=== PATIENT | female | born 1975 | race Two or more races ===

== ENCOUNTER 2017-05-10 11:24 | Inpatient (IN) ==
[2017-05-10 12:45] LABS: Basophils % 0.6 % (0.0-0.8); Eosinophils # 0.3 10*3/uL (0.0-0.87); Hematocrit 37.9 VOL% (35.7-47.0); Hemoglobin 12.6 GM/DL (12.0-16.0); Immature Granulocytes % 0.3 %; Immature Granulocytes Absolute 0.02 #; Lymphocytes # 2.4 10*3/uL (1.4-4.0); Mean Corpuscular HGB Conc 33.2 GM/DL (32-36); Mean Corpuscular Hemoglobin 27 PG (27-34); Mean Corpuscular Volume 80.5 FL (87-102); Mean Platelet Volume 13.1 FL (9.6-12.0); Monocytes # 0.5 10*3/uL (0.11-0.8); Monocytes % 7.1 % (1.7-12.7); Neutrophils # 3.3 10*3/uL (1.4-7.4); Platelet Count 159 T/CUMM (130-400); Red Blood Count 4.71 MC/CUMM (3.8-5.5); White Blood Count 6.5 T/CUMM (4-12)
[2017-05-10 12:49] LABS: Apearance,Urine CLEAR (Clear); Bilirubin,Urine Negative (Negative); Blood, Urine Negative (Negative); Glucose,Urine (UA) Negative (Negative); Ketones,Urine Negative (Negative); Nitrite,Urine Negative (Negative); Protein,Urine Negative; RBC,Urine <1 /HPF (0-4); Urine Color Yellow (Yellow); Urine Specific Gravity 1.006 (1.001-1.035); Urine Urobilinogen < 2.0 EU/DL (0.2-1.0); WBC,Urine <1 /HPF (0-6)
[2017-05-10 13:23] LABS: Calcium 9.4 MG/DL (8.5-10.1); Osmolality,Calculated 274.5 MOS/KG (273-304); Potassium 3.9 MMOL/L (3.5-5.1)
[2017-05-10] MEDS ORDERED: MORPHINE 2 MG/1 ML SYRINGE IM STA (13:33)
[2017-05-10] MEDS ORDERED: ONDANSETRON 4 MG/2 ML VIAL IM STA (13:33)
--- NOTE | 2017-05-10 13:43 | Emergency Department Note ---
Arrival - Arrival Chief Complaint: Urogenital - Female Stated Complaint: fibroid pain Dr. Cote is my doctor ED Nursing Triage Note: Pt c/o increased abd pain from her Fibroid's. Denies Vag bleeding. Mode of Arrival: Wheelchair Source: Patient Time Seen by Provider: 05/10/17 12:10 - History of Present Illness HPI Narrative: 41 y/o female presents to the ER complaining of abdominal pain. Patient states she has a history of uterine fibroids and is followed by Dr. Cote. She has been told she needs to have surgery but was trying to hold off as long as she can due to having a 10 month old child at home. This morning patient woke up with severe pain. Denies vaginal bleeding. Past medical history significant for uterine fibroids. [id number]. OBGYN: Dr. Carter Cote. Consistency: constant Severity: severe Quality: aching, fullness Date of Last Menstrual Period: May 03 Allergies/Adverse Reactions: Allergies Allergy/AdvReac Type Severity Reaction Status Date / Time No Known Allergies Allergy Verified 04/29/16 23:28 Home Medications: Home Medications Medication Instructions Recorded Confirmed Type Acetamin/Codeine 120-12 mg/5Ml 12.5 ml PO Q6H PRN #120 ml 01/23/17 Rx [Tylenol/Codeine Liquid] Oseltamivir Phosphate [Tamiflu] 75 mg PO BID #10 capsule 01/23/17 Rx Review of System - Review of System 12 point system: reviewed and no additional remarkable complaints except as stated - Review of System Gastrointestinal: Present: abdominal pain Medical,Surgical,& Family Hx - Medical History Reproductive: History of: Reproductive Problems (Fibroid) No history of: Ectopic , Complication - Surgical History Reproductive Surgeries: Patient denies;: Section - Family History Family History: Denies;: Family Anesthesia Reaction, Family Cancer, Family Diabetes, Family Heart Disease, Family Hypertension, Family Psychiatric Problems, Family Stroke - Social History Smoking Status: Never smoker Exam Vital Signs: Vital Signs Temperature 99.2 F 05/10/17 11:26 Pulse Rate 69 05/10/17 11:26 Respiratory Rate 16 05/10/17 11:26 Blood Pressure 123/72 05/10/17 11:26 O2 Sat by Pulse Oximetry 97 05/10/17 11:26 - General General appearance: alert, in no apparent distress - ENT ENT exam: Present: normal exam, normal oropharynx, mucous membranes moist - Chest Chest inspection: Present: normal inspection - Respiratory Respiratory exam: Present: normal lung sounds bilaterally - Cardiovascular Cardiovascular exam: Present: regular rate, normal rhythm, normal heart sounds - Abdominal Exam Abdominal exam: Present: soft, tenderness (Exquisite tenderness to left upper quadrant and left lower quadrant; large mass/fibroids palpated to abdomen ), normal bowel sounds - Extremities Exam Extremities exam: Present: normal inspection, full ROM - Back Exam Back exam: Absent: CVA tenderness (R), CVA tenderness (L) - Neurological Exam Neurological exam: Present: alert, oriented X3 - Psychiatric Psychiatric exam: Present: normal affect, normal mood - Skin Skin exam: Present: warm, dry Course - Consultations Consultation #1: Dr. Cote Time: 13:45 (Discussed case with Dr. Cote. Will admit patient to post- ) Results - Labs CBC & BMP: 05/10/17 12:36 05/10/17 12:36 Lab Results: I have reviewed the patients labs Labs: UA: WNL UPT: negative Disposition Clinical Impression: Uterine fibroid Disposition: Still a Patient
[2017-05-10] MEDS ORDERED: ONDANSETRON 4 MG/2 ML VIAL IV STA (13:44)
[2017-05-10] MEDS ORDERED: MORPHINE 2 MG/1 ML SYRINGE IV STA (13:45)
[2017-05-10] MEDS ORDERED: ONDANSETRON 4 MG/2 ML VIAL ONE (13:47)
[2017-05-10] MEDS ORDERED: MORPHINE 2 MG/1 ML SYRINGE ONE (13:47)
--- NOTE | 2017-05-10 15:39 | EKG Report ---
Stationary ECG Study [facility] Test Date: 05/10/2017 3:40:19 PM Pat Name: ALIYAH HAGER Department: Room: 160 Gender: F Receiver Dispatcher: : [id number] Requested by: Carter Cote Order Number: [id number] Reading MD: KATHI SOSA Intervals Forbes Rate: 61 P: 51 ND: 160 QRS: 70 QRSD: 85 T: 24 QT: 428 QTc: 430 Interpretive Statements SINUS RHYTHM Electronically Signed On 05-10-17 17:43:00 CDT by KATHI SOSA [email or web address]
--- NOTE | 2017-05-10 16:16 | XRay Report ---
XR chest 2V Indication: Surgical clearance Comparison: None Technique: Frontal and lateral views of the chest. Findings: Borderline heart size. Chronic change of the lungs without focal consolidation, pleural effusion, or pneumothorax. Visualized osseous and surrounding soft tissue structures demonstrate no acute abnormality. IMPRESSION: Borderline heart size without tianna pulmonary edema. PROCEDURE INTERPRETED AT [facility] DEPARTMENT OF RADIOLOGY Final Report Signed by: Dr Fredi Hanley
[2017-05-10] MEDS: LACTATED RINGERS 1,000 ML IV SCH (16:39)
[2017-05-10] MEDS ORDERED: oxyCODONE/ACETAMINOPHEN 5-325 MG TABLET PO PRN (17:58)
[2017-05-10] MEDS ORDERED: ONDANSETRON 4 MG/2 ML VIAL IM PRN (17:59)
[2017-05-10] MEDS ORDERED: ONDANSETRON 4 MG TABLET PO PRN (17:59)
--- NOTE | 2017-05-10 18:02 | OB/GYN History & Physical ---
History of Present Illness Chief complaint: Dysfunction bleeding, uterine fibroids History of present illness: Ms. Malcolm is a 41 year old female Multiparous patient with known uterine fibroids. Patient had been tried on oral contraceptives without good results. She has continued pain and discomfort and heavy bleeding and passing of clots. She is presently taking iron therapy and increasing her p.o. fluids. In light of the persistent pain and discomfort in the large uterine fibroids. She is presents at this time with severe pelvic pain and discomfort. Have recommended at this time a DELMI/ BSO risks and benefits were thoroughly discussed she is in full agreement. Home Medications Medication Instructions Recorded Confirmed Type Acetamin/Codeine 120-12 mg/5Ml 12.5 ml PO Q6H PRN #120 ml 01/23/17 Rx [Tylenol/Codeine Liquid] Oseltamivir Phosphate [Tamiflu] 75 mg PO BID #10 capsule 01/23/17 Rx Allergies Allergy/AdvReac Type Severity Reaction Status Date / Time No Known Allergies Allergy Verified 04/29/16 23:28 Medical,Surgical,& Family Hx - Medical History Reproductive: History of: Reproductive Problems (Fibroid) No history of: Ectopic , Complication - Surgical History Reproductive Surgeries: Patient denies;: Section - Family History Family History: Denies;: Family Anesthesia Reaction, Family Cancer, Family Diabetes, Family Heart Disease, Family Hypertension, Family Psychiatric Problems, Family Stroke - Social History Smoking Status: Never smoker Frequency of Alcohol Use: None Type of Drug Use: 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 - Constitutional Vitals: Vital Signs Temp Pulse Pulse Resp BP BP Pulse Ox 05/10/17 15:39 97.3 F L 62 20 113/66 05/10/17 14:45 97.4 F L 65 20 121/63 05/10/17 13:54 70 18 112/69 99 05/10/17 11:26 99.2 F 69 16 123/72 97 Pulse Ox 05/10/17 15:39 97 05/10/17 14:45 95 05/10/17 13:54 05/10/17 11:26 General appearance: mild distress - Head Head exam: Present: normal inspection - Eye Eye exam: Present: EOMI Pupils: Present: BEN - ENT ENT exam: Present: normal exam - Neck Neck exam: Present: normal inspection - Respiratory Respiratory exam: Present: clear to auscultation bilaterally - Breast Breasts: as per HPI Menstruation: as per HPI - Cardiovascular Cardiovascular exam: Present: regular rate and rhythm - GI/Abdominal GI/Abdominal exam: Present: normal bowel sounds, other (Palpable large uterine fibroids, tender,) - Extremities Exam Extremities exam: Present: normal inspection - Back Exam Back exam: Present: normal inspection - Neurological Exam Neurological exam: Present: alert - Psychiatric Psychiatric exam: Present: normal affect Assessment and Plan (1) Uterine fibroid Status: Acute Assessment and plan: Severe pelvic pain, heavy vaginal bleeding, large uterine fibroids, will plan on a DELMI/BSO. Risks benefits thoroughly discussed this patient in full agreement. Current Visit: Yes Qualifiers: Uterine leiomyoma location: intramural, submucous, and subserous Qualified Code(s): D25.1 - Intramural leiomyoma of uterus; D25.0 - Submucous leiomyoma of uterus; D25.2 - Subserosal leiomyoma of uterus Results - Labs CBC & BMP: 05/10/17 12:36 05/10/17 12:36
[2017-05-10 18:54] LABS: Apearance,Urine CLEAR (Clear); Bilirubin,Urine Negative (Negative); Blood, Urine Negative (Negative); Glucose,Urine (UA) Negative (Negative); Ketones,Urine Negative (Negative); Nitrite,Urine Negative (Negative); Protein,Urine Negative; RBC,Urine <1 /HPF (0-4); Urine Color Straw (Yellow); Urine Specific Gravity 1.005 (1.001-1.035); Urine Urobilinogen < 2.0 EU/DL (0.2-1.0); WBC,Urine <1 /HPF (0-6)
[2017-05-11] MEDS: LACTATED RINGERS 1,000 ML IV SCH (12:08)
--- NOTE | 2017-05-11 17:49 | Progress Note ---
Assessment and Plan (1) Uterine fibroid Status: Acute Assessment and plan: Severe pelvic pain, heavy vaginal bleeding, large uterine fibroids, will plan on a DELMI/BSO. Risks benefits thoroughly discussed this patient in full agreement. Current Visit: Yes Qualifiers: Uterine leiomyoma location: intramural, submucous, and subserous Qualified Code(s): D25.1 - Intramural leiomyoma of uterus; D25.0 - Submucous leiomyoma of uterus; D25.2 - Subserosal leiomyoma of uterus Family Medicine PN Sub Interval history: Patient with known uterine fibroids, dysfunctional uterine bleeding, she presently is feeling slightly better. Abdomen is ammonia distiller to touch in the left lower quadrant. We have discussed the DELMI/BSO she is in full agreement and offers no questions at this particular time. We will proceed in the a.m., n.p.o. after midnight typed and screened as well. Exam (Progress Note) - Constitutional Vitals: Period Temp Pulse Resp BP Sys/Parrish Pulse Ox Last 24 Hr 96.8 F-98.3 F 59-75 16-20 98-115/47-68 97-98 Results - Labs CBC & BMP: 05/10/17 12:36 05/10/17 12:36
[2017-05-11] MEDS ORDERED: SODIUM PHOSPHATE ENEMA 133 ML BOTTLE RECTAL ONE (21:00)
[2017-05-12] MEDS ORDERED: ceFAZolin 2,000 MG in PREMIX 1 EACH IV ONE (06:00)
[2017-05-12] MEDS ORDERED: MICROFIBRILLAR COLLAGEN POWDER 1 GM CAN TOP ONE (08:31)
[2017-05-12] MEDS: LACTATED RINGERS 1,000 ML IV SCH ×4 (08:52→22:45)
[2017-05-12] MEDS ORDERED: ROCURONIUM 100 MG/10 ML VIAL IV ONE (09:00)
[2017-05-12] MEDS ORDERED: MINERAL OIL/PETROLATUM OPH OINT 3.5 GM TUBE ONE (09:00)
[2017-05-12] MEDS ORDERED: PROPOFOL 200 MG/20 ML VIAL IV ONE (09:00)
[2017-05-12] MEDS ORDERED: LIDOCAINE 1% 5 ML VIAL ONE (09:00)
[2017-05-12] MEDS ORDERED: KETOROLAC 60 MG/2 ML VIAL IM ONE (09:00)
[2017-05-12] MEDS ORDERED: GLYCOPYRROLATE 0.4 MG/2 ML VIAL ONE (09:00)
[2017-05-12] MEDS ORDERED: ACETAMINOPHEN 325 MG TABLET PO PRN (10:36)
[2017-05-12] MEDS ORDERED: BENZOCAINE/MENTHOL LOZENGE 18/BOX PO PRN (10:36)
[2017-05-12] MEDS ORDERED: DOCUSATE SODIUM 100 MG CAPSULE PO PRN (10:36)
[2017-05-12] MEDS ORDERED: IBUPROFEN 800 MG TABLET PO PRN (10:36)
[2017-05-12] MEDS ORDERED: ONDANSETRON 4 MG/2 ML VIAL IV PRN (10:36)
[2017-05-12] MEDS ORDERED: BISACODYL 10 MG SUPP RECTAL PRN (10:36)
--- NOTE | 2017-05-12 10:36 | Operative Note ---
Date of procedure: 05/12/17 Procedure: Preoperative diagnosis: [] Anemia, dysfunctional bleeding, large multiple uterine fibroids Postoperative diagnosis: Same Anesthesia: General. endotracheal anesthesia Estimated blood loss: [] Less than 150 Surgeon: Dr. Cote Findings: [] Large fibroids multiple, awaiting final path Procedure: DELMI/BSO The risks benefits and indications and alternatives the procedure were reviewed with the patient and informed consent was obtained. The patient was taken to the operating room with IV running and a Martinez catheter in place. Patient was placed in supine position, given general anesthesia, prepped and draped in the usual sterile fashion. An abdominal incision was made approximately 2 cm above the symphysis pubis and extended sharply to the rectus fascia. The fascia was then excised bilaterally with the curved Diaz scissors. And the muscles of the anterior abdominal wall were in the midline by sharp and blunt dissection. Peritoneum was grasped between 2 pickups, elevated and entered sharply with the scalpel. The pelvis was examined with the findings noted above. A abdominal retractor was placed into the incision and the bowel packed away with moist laparotomy sponges. [] A tenaculum was placed on the cornea and used for retraction. The round ligaments on both sides were clamped, transected and suture ligated with 0 Vicryl the anterior leaf of the broad ligament was incised along the bladder was reflection to the midline from both sides. The bladder was then gently dissected off the lower uterine segment and the cervix with a sponge stick. The infundibulopelvic ligaments on both sides were then doubly clamped, transected and suture ligated with 0 Vicryl. Hemostasis was visualized. The uterine arteries were skeletonized bilaterally, clamped with Jonn clamps, transected and suture ligated with 0 Vicryl and, hemostasis was assured. The uterosacral ligament were clamped on both sides, transected, and suture ligated in a similar fashion the cervix and uterus were amputated with cautery. The vaginal cuff angles were closed with [id number] stitches of 0 Vicryl and were transfixed to the ipsilateral cardinal and uterosacral ligaments. The remainder of the vaginal cuff was closed with a series of interrupted 0 Vicryl [id number] sutures hemostasis was assured. The ureters were identified bilaterally were well within normal limits the pelvis was irrigated copiously with warm normal saline. All laparotomy sponges and instruments were removed from the abdomen. The fascia was closed with running 0 Vicryl, and hemostasis was assured the skin was closed with christiano. Sponges, lap, needle and instrument counts were correct -2. The patient was extubated in the operating room was taken to the PAC unit, awake and in stable condition.. Surgeon / Physician: Carter Cote Results - Labs CBC & BMP: 05/10/17 12:36 05/10/17 12:36 Discharge Plan - Discharge Medications No Action Acetamin/Codeine 120-12 mg/5Ml [Tylenol/Codeine Liquid] 12.5 ml PO Q6H PRN # 120 ml PRN Reason: Cough Oseltamivir Phosphate [Tamiflu] 75 mg PO BID #10 capsule - Follow Up or Referral - Forms/Instructions
[2017-05-12] MEDS ORDERED: NALOXONE 0.4 MG/ML VIAL IV PRN (10:38)
[2017-05-12] MEDS ORDERED: HYDROmorphone PCA 30 MG/30 ML SYRINGE IV SCH (11:00)
--- NOTE | 2017-05-12 11:01 | Anesthesia Post-Op ---
Anesthesia Post OP - Post Ansesthetic Evaluation Patient seen in post op: Yes Resp: within normal limits CV: within normal limits Mental: within normal limits Temp: within normal limits [id number]: within normal limits Nausea and Vomiting: within normal limits Pain: within normal limits
[2017-05-12] MEDS ORDERED: MIDAZOLAM 2 MG/2 ML VIAL ONE (11:06)
[2017-05-12] MEDS ORDERED: SEVOFLURANE 1 UNIT/15 MINUTE INH ONE ×2 (11:06→11:07)
[2017-05-12] MEDS ORDERED: LACTATED RINGERS 1,000 ML IV ONE (11:06)
[2017-05-12] MEDS ORDERED: ACETAMINOPHEN 1,000 MG/100 ML VIAL IV ONE ×2 (11:06→11:08)
[2017-05-12] MEDS ORDERED: DESFLURANE 1 UNIT/15 MINUTE INH ONE (11:07)
[2017-05-12] MEDS ORDERED: fentaNYL 100 MCG/2 ML VIAL ONE (11:08)
[2017-05-12] MEDS ORDERED: HYDROmorphone PCA 30 MG/30 ML SYRINGE IV ONE (11:13)
[2017-05-12 11:16] LABS: Apearance,Urine CLEAR (Clear); Bilirubin,Urine Negative (Negative); Blood, Urine Negative (Negative); Glucose,Urine (UA) Negative (Negative); Ketones,Urine Negative (Negative); Nitrite,Urine Negative (Negative); Protein,Urine Negative; RBC,Urine 2 /HPF (0-4); Squamous Epithelial Cell,Urine Occasional /HPF (0-10); Urine Color Straw (Yellow); Urine Specific Gravity 1.009 (1.001-1.035); Urine Urobilinogen < 2.0 EU/DL (0.2-1.0); WBC,Urine <1 /HPF (0-6)
[2017-05-12] MEDS ORDERED: ROPIVACAINE 0.5% 30 ML VIAL ONE (11:46)
[2017-05-13 06:54] LABS: Basophils % 0.2 % (0.0-0.8); Eosinophils # 0.1 10*3/uL (0.0-0.87); Eosinophils % 1.1 % (0.00-10.9); Hematocrit 25.1 VOL% (35.7-47.0); Hemoglobin 8.1 GM/DL (12.0-16.0); Immature Granulocytes % 0.6 %; Immature Granulocytes Absolute 0.06 #; Lymphocytes # 2.7 10*3/uL (1.4-4.0); Lymphocytes % 25.4 % (21.3-54.2); Mean Corpuscular HGB Conc 32.3 GM/DL (32-36); Mean Corpuscular Hemoglobin 27 PG (27-34); Mean Corpuscular Volume 82.8 FL (87-102); Mean Platelet Volume 13.3 FL (9.6-12.0); Monocytes # 0.8 10*3/uL (0.11-0.8); Monocytes % 7.4 % (1.7-12.7); Neutrophils # 6.8 10*3/uL (1.4-7.4); Neutrophils % 65.3 % (38.7-73.9); Platelet Count 124 T/CUMM (130-400); Red Blood Count 3.03 MC/CUMM (3.8-5.5); Red Cell Distribution Width 14.4 % (9.3-17.3); White Blood Count 10.5 T/CUMM (4-12)
[2017-05-13] MEDS: LACTATED RINGERS 1,000 ML IV SCH ×2 (08:48)
[2017-05-13] MEDS ORDERED: PHENOL 1.4% THROAT SPRAY 177 ML BOTTLE PO PRN (11:34)
--- NOTE | 2017-05-13 11:55 | Progress Note ---
Assessment and Plan (1) Uterine fibroid Status: Acute Assessment and plan: Severe pelvic pain, heavy vaginal bleeding, large uterine fibroids, will plan on a DELMI/BSO. Risks benefits thoroughly discussed this patient in full agreement. Current Visit: Yes Qualifiers: Uterine leiomyoma location: intramural, submucous, and subserous Qualified Code(s): D25.1 - Intramural leiomyoma of uterus; D25.0 - Submucous leiomyoma of uterus; D25.2 - Subserosal leiomyoma of uterus Family Medicine PN Sub Interval history: Status post DELMI/BSO secondary to dysfunctional uterine bleeding, anemia, pelvic pain, uterine fibroids. Patient complains, primarily of gas, no nausea at this particular time. Pain is been well managed with the Dilaudid RN CARDIOVASCULAR pump but now should be transferred over to p.o. meds. Abdomen soft bowel sounds are quiet incision sites intact Extremities well with no limits neurologic grossly intact. Exam (Progress Note) - Constitutional Vitals: Period Temp Pulse Resp BP Sys/Parrish Pulse Ox Last 24 Hr 97.1 F-98.8 F 58-91 16-18 86-121/45-69 98-100 Results - Labs CBC & BMP: 05/13/17 06:24 05/10/17 12:36 Quality Measures - VTE Contraindication to Pharmacological VTE Prophylaxis: Clinical assessment deems Pt at low risk, no prophalaxis needed
[2017-05-13] MEDS: FERROUS SULFATE 325 MG TABLET PO SCH (12:13)
[2017-05-13] MEDS: METOCLOPRAMIDE 10 MG/2 ML VIAL IV SCH ×2 (12:20→20:14)
--- NOTE | 2017-05-13 12:21 | Pathology Report from [facility] ---
[facility] [place]ESSION # : [id number] PATIENT NAME : Qian Malcolm V. ORDERING DR : AMANDA MATA MD CLINICAL HX: Uterine fibroids, heavy vaginal bleeding POST-OP DX: Same SPECIMEN INFO: #1 Uterus #2 Cervix #3 RT ovary #4 LT ovary GROSS DESCRIPTION: #1 Received in formalin labeled with the patients name QIAN MALCOLM and #1 consists of an 818 gram uterus with an unattached cervix measuring approximately 14.0 x 12.3 x 10.5 cm. The serosa is smooth, pink-rodriguez with an approximately 3.8 cm area of attached fallopian tube with a subserosal hemorrhagic cyst present. The serosa appears to be free of adhesions. The endometrial cavity is hemorrhagic and appears somewhat stenotic. The endometrium has a thickness of 0.2 cm. The endometrium is displaced by a well- circumscribed 9.0 x 9.5 cm white whorled nodule. No gross abnormalities on sectioning. Sections submitted: 1A and 1B endomyometrium, 1C sales and service representative sections of nodule, 1D posterior uterine serosa, 1E serosal remnant of fallopian tube and cyst.#2 Received in formalin labeled with the patients name QIAN MALCOLM and #2 CERVIX consists of a 38 gram cervix and endocervical tissue measuring 5.2 x 4.2 x 2.8 cm. The cervical os measures 1.0 cm. Multiple cysts are noted on sectioning. Coordinator Of Evaluation sections submitted in cassettes 2A and 2B.#3 Received in formalin labeled with the patients name QIAN MALCOLM and #3 RT OVARY consists of a pink-rodriguez cystic ovary and attached fallopian tube. The ovary measures 5.3 x 5.2 x 3.0 cm. Sectioning reveals a large cyst containing pale yellow serous fluid. Remaining cut surfaces are unremarkable. The attached fimbriated fallopian tube is pink and measures 4.2 x 0.6 cm. Coordinator Of Evaluation sections submitted in cassettes 3A and 3B.#4 Received in formalin labeled with the patients name QIAN MALCOLM and #4 LT OVARY consists of a pink-rodriguez ovary and attached fallopian tube. The ovary measures 2.4 x 2.5 x 0.8 cm. Cut surfaces are unremarkable. The attached fimbriated fallopian tube is pink-rodriguez and measures approximately 4.2 x 0.5 cm. Coordinator Of Evaluation sections submitted in cassettes 4A and 4B. DIAGNOSIS FOR QIAN MALOCLM: #1 UTERUS: Disordered proliferative endometrium; benign endometrial polyp with deciduoid changes and hemorrhage. Adenomyosis. Leiomyoma. Serosal remnant of fallopian tube and paratubal cysts.#2 CERVIX: Chronic cystic cervicitis.#3 RIGHT OVARY & FALLOPIAN TUBE: Ovary with fibrosis; fallopian tube.#4 LEFT OVARY & FALLOPIAN TUBE: Ovary with fibrosis and focal calcification; fallopian tube with paratubal cysts. COLLECTED DATE: 05/12/2017 [facility] REPORT DATE: 05/13/2017 ELECTRONICALLY SIGNED BY: Panchito Nino M.D. 05/13/2017 - 11:39:44 MTDD
[2017-05-13] MEDS: MAGNESIUM HYDROXIDE SUSP 30 ML UDCUP PO PRN (20:20)
[2017-05-14] MEDS: METOCLOPRAMIDE 10 MG/2 ML VIAL IV SCH (04:08)
[2017-05-14 07:50] VITALS: BP 111/63
[2017-05-14] MEDS ORDERED: SIMETHICONE CHEW 80 MG TABLET PO PRN (09:01)
[2017-05-14] MEDS: FERROUS SULFATE 325 MG TABLET PO SCH (09:08)
[2017-05-14] MEDS: MAGNESIUM HYDROXIDE SUSP 30 ML UDCUP PO PRN (09:08)
--- NOTE | 2017-05-14 10:29 | Discharge Summary ---
Hospital Course - Hospital Course Hospital Course: Pt reports that she feels ok this morning. Positive flatus. BM this morning. Ready to go home Specialty Discharge - Follow Up or Referrals Follow up with: Carter Cote MD [Physician] - Discharge Plan - Discharge Data Disposition: Disch To Home/Self Care Condition at Discharge: Stable Discharge Diet: advance to your usual diet Activity: other (Routine post op) Hygiene: may shower Weight Bearing at Discharge: full weight bearing Driving: not for (2 weeks) - Discharge Medications No Action Acetamin/Codeine 120-12 mg/5Ml [Tylenol/Codeine Liquid] 12.5 ml PO Q6H PRN # 120 ml PRN Reason: Cough Oseltamivir Phosphate [Tamiflu] 75 mg PO BID #10 capsule - Follow Up or Referral Follow Up: Carter Cote MD [Physician] - - Forms/Instructions Instructions: Abdominal Hysterectomy (DC), Surgical Site Infections (GEN) Exam - Constitutional Vitals: Period Temp Pulse Resp BP Sys/Parrish Pulse Ox Last 24 Hr 98.1 F-99.6 F 82-98 18-20 111-128/61-66 98-99 General appearance: no acute distress - Head Head exam: Present: normal inspection - Eye Eye exam: Present: EOMI Pupils: Present: BEN - GI/Abdominal GI/Abdominal exam: Present: other (Incision intact) DS: Provider Date of admission: 05/10/17 13:49 Primary care physician: . No PCP Attending physician on admission: Carter Cote MD Consults: 05/10/17 15:30 Consult to Anesthesiology [CONS] Routine Consulting Provider: Reason for Anesthesiology: Pre-op Clearance Consult Comment: SURGERY SCHEDULED FOR 05-12-17 Discharging clinician: Kayleigh Diego MD
== END 2017-05-14 12:45 | disposition home or self-care (01) | DRG 743 ==
LOC: N.ED 11:24 → N.EDINP 13:49 → N.OB 14:32
PROVIDERS: ADMIT Obstetrics & Gynecology; ATTEND Obstetrics & Gynecology